=== PATIENT | female | born 1975 | race Caucasian/White ===

== ENCOUNTER → 2016-12-28 | Outpatient (CLI) | payer BC | END | disposition home or self-care (01) | LOC: C.RDSM 13:45 | PROVIDERS: ATTEND Physical Medicine & Rehabilitation Sports Medicine | DX: M79.644 Pain in right finger(s) (principal) ==

== ENCOUNTER → 2017-07-21 | Outpatient (CLI) | payer BC | END | disposition home or self-care (01) | LOC: C.LABSPEC 16:48 | PROVIDERS: ATTEND Family Medicine | DX: L29.8 Other pruritus (principal) ==

== ENCOUNTER → 2018-01-05 | Outpatient (CLI) | payer OTHER ==
--- NOTE | 2018-01-05 12:43 | DIAGNOSTIC IMAGING REPORT ---
L FOOT MIN 3 VIEWS ROUTINE CLINICAL HISTORY: PAIN IN LEFT FOOT trauma. Pain. COMPARISON: None. DISCUSSION: The bones and joint spaces appear intact. There is no evidence of fracture, dislocation or bony disease. Mild soft tissue edema IMPRESSION: Mild soft tissue edema. No acute bony abnormality. The above report was generated using voice recognition software. It may contain grammatical, syntax or spelling errors. Electronically signed by: Hi Gilmore M.D. 01/05/2018 12:41 PM Dictated Date/Time: 01/05/2018 12:41 PM
== END | disposition home or self-care (01) ==
LOC: C.RAD 12:14
PROVIDERS: ATTEND Family Medicine
DX: M79.672 Pain in left foot (principal)